=== PATIENT | male | born 1980 | race Caucasian/White ===

== ENCOUNTER 2017-08-02 12:07 | Emergency (ER) | payer BC ==
[~2017-08-02] VITALS: Ht 182.9 cm; Wt 100.0 kg
[~2017-08-02 12:07] MED LIST: CLEOCIN HCL300 MG PO; NORCO 325 MG-51 TAB PO; PERCOCET 325 MG1 TAB PO; PREVACID 30MG30 M1 PO; SKELAXIN 800MG800 MG PO
[2017-08-02 14:19] LABS: BASO % 0.2 % (0.0-2.0); GRAN % 89.4 % (42.2-75.2); HEMATOCRIT 51.3 % (42.0-52.0); LYMPH # 1.1 (1.2-3.4); LYMPH % 9.2 % (20.0-51.0); MEAN CELL VOLUME 87 fl (80.0-100.0); MEAN CORPUSCULAR HEMOGLOBIN 31 pg (27.0-31.0); MEAN CORPUSCULAR HGB CONC 35 g/dl (33.0-37.0); MEAN PLATELET VOLUME 10.4 fl (7.4-10.4); MONO # 0.1 (0.1-0.6); MONO % 0.8 % (1.7-9.3); PLATELET COUNT 272 K/mm3 (130-400); REDCELL DISTRIBUTION WIDTH-CV 12.7 % (11.5-14.5)
[2017-08-02 14:32] LABS: BILIRUBIN,TOTAL 0.7 mg/dL (0.0-1.0); CALCIUM 10.5 mg/dL (8.4-10.2); CREATININE, serum 1.02 mg/dL (0.66-1.25); POTASSIUM 4.8 mmol/L (3.4-5.0); TOTAL PROTEIN 9.4 gm/dL (6.4-8.2)
[2017-08-02] MEDS ORDERED: ANUSOL HC CREAM30 GM TP (14:41)
[2017-08-02 16:02] VITALS: BP 157/96; PULSE 114; TEMP 98.2
== END 2017-08-02 16:04 | disposition home or self-care (01) ==
LOC: COL.ER 12:07
PROVIDERS: Physician Assistant
DX: K64.4 Residual hemorrhoidal skin tags (principal); K21.9 Gastro-esophageal reflux disease without esophagitis; F17.210 Nicotine dependence, cigarettes, uncomplicated

== ENCOUNTER 2019-12-27 16:42 | Emergency (ER) | payer BC ==
[~2019-12-27] VITALS: Ht 182.9 cm; Wt 90.9 kg
[~2019-12-27 16:42] MED LIST changes: +ANUSOL HC CREAM30 GM TP
[2019-12-27 16:48] VITALS: TEMP 98.2
[2019-12-27] MEDS ORDERED: LIORESAL 1010 MG/TAB PO (17:52)
[2019-12-27] MEDS ORDERED: ULTRAM 50MG TAB50 MG PO (17:52)
[2019-12-27 18:26] VITALS: BP 122/91; PULSE 105
== END 2019-12-27 18:28 | disposition home or self-care (01) ==
LOC: COL.ER 16:42
DX: S29.012A Strain of muscle and tendon of back wall of thorax, initial encounter (principal); I10 Essential (primary) hypertension; F17.210 Nicotine dependence, cigarettes, uncomplicated; X50.9XXA Other and unspecified overexertion or strenuous movements or postures, initial encounter